=== PATIENT | male | born 1960 | race Caucasian/White ===

== ENCOUNTER 2024-07-24 20:35 | Inpatient (IN) | payer MEDICARE, MEDICAID ==
[~2024-07-24] VITALS: Ht 182.9 cm; Wt 81.0 kg
[2024-07-24] MEDS: LORAZEPAM 2MG/ML INJ IM ONE (21:35)
[2024-07-24] MEDS: SODIUM CHLORIDE 0.9% 1000ML BAG (SEPSIS BOLUS) IV ONE (21:35)
[2024-07-24] MEDS: HALOPERIDOL LACTATE 5MG/ML VIAL IM ONE (21:42)
[2024-07-24] MEDS: DIPHENHYDRAMINE 50MG/ML VIAL IM ONE (21:45)
[2024-07-24] MEDS: PIPERACILLIN/TAZO 3.375G/50ML 50 ML IV ONE (21:45)
[2024-07-24] MEDS: VANCOMYCIN 1G PREMIX 200 ML IV ONE (22:16)
[2024-07-24] MEDS: MIDAZOLAM HCL 2 MG/2 ML VIAL IV ONE ×3 (22:35→23:38)
[2024-07-24 23:35] LABS: HEMATOCRIT. 35.2 % (42.0-52.0); HEMOGLOBIN. 11.6 g/dL (14.0-18.0); MEAN CORPUSCULAR HEMOGLOBIN 29.6 pg (28.0-32.0); MEAN CORPUSCULAR HGB CONC 32.9 g/dL (31.0-37.0); MEAN CORPUSCULAR VOLUME 89.9 fL (80.0-94.0); MEAN PLATELET VOLUME 8.1 fl (7.4-10.4); PLATELET 101 x1000/uL (130-400); RED BLOOD CELL COUNT 3.91 mill/uL (4.7-6.1); RED CELL DISTRIBUTION WIDTH 15.7 % (11.6-14.6); WHITE BLOOD COUNT 21.6 x1000/uL (4.5-11.0)
[2024-07-24] MEDS: OLANZAPINE 10 MG/VIAL IM ONE (23:38)
[2024-07-24 23:40] LABS: INR 1.2; PROTHROMBIN TIME 13.5 sec (9.6-11.0)
[2024-07-24 23:42] LABS: CHLORIDE 106 mEq/L (98-107); POTASSIUM 3.6 mEq/L (3.5-5.1); SODIUM 141 mEq/L (136-145)
[2024-07-24 23:43] LABS: CALCIUM 9.4 mg/dL (8.7-10.4); CARBON DIOXIDE 22 mEq/L (21-32)
[2024-07-24 23:48] LABS: CREATININE 1.8 mg/dL (0.6-1.3); GLUCOSE 197 mg/dL (70-105); UREA NITROGEN BLOOD 25 mg/dL (9-23)
[2024-07-24 23:49] LABS: AMMONIA 17 uMol/L (<32)
[2024-07-24 23:50] LABS: ALANINE AMINOTRANSFERASE 38 IU/L (10-49); ALBUMIN 3.9 g/dL (3.2-4.8); ASPARTATE AMINOTRANSFERASE 56 IU/L (<34); BILIRUBIN DIRECT 0.3 mg/dL (<=3.0); BILIRUBIN TOTAL 0.7 mg/dL (0.1-1.0); CREATINE KINASE 885 IU/L (46-171)
[2024-07-24 23:51] LABS: PROTEIN TOTAL 6.9 g/dL (6.0-8.3)
[2024-07-24 23:54] LABS: DIFFERENTIAL COMMENT 1
[2024-07-25] VITALS (12 sets, daily range): BP systolic 109–183; BP diastolic 64–123; PULSE 82–107; RESP 21–29; TEMP 36.16956–38.66976; O2SAT 95–98
[2024-07-25 00:04] LABS: LACTIC ACID 4.4 mmol/L (0.4-2.0)
[2024-07-25 00:05] LABS: TROPONIN I HIGH SENSITIVITY 2148 ng/L (3.0-53)
[2024-07-25] MEDS: MIDAZOLAM HCL 2 MG/2 ML VIAL IV ONE ×2 (02:05→02:30)
[2024-07-25 02:54] LABS: PLATELET ESTIMATE DECREASED
[2024-07-25] MEDS ORDERED: GUAIFENESIN 200MG/10ML SUGAR FREE UDC PO PRN (06:15)
[2024-07-25] MEDS ORDERED: MAGNESIUM/ALUMINUM HYDROXIDE/SIMETHICONE 30ML UDC PO PRN (06:15)
[2024-07-25] MEDS ORDERED: DEXTROSE 50% WATER 50ML SYRINGE IV PRN (06:15)
[2024-07-25] MEDS ORDERED: IPRATROPIUM/ALBUTEROL 0.5-3(2.5)MG/3ML NEB NEB PRN (06:15)
[2024-07-25] MEDS ORDERED: NITROGLYCERIN 0.4MG TABLET SL SL PRN (06:15)
[2024-07-25] MEDS ORDERED: LACTATED RINGERS 1,000 ML IV ONE (06:15)
[2024-07-25] MEDS: MVI, ADULT NO.1 10 ML, FOLIC ACID 1 MG, THIAMINE HCL 100 MG in SODIUM CHLORIDE 0.9% 1,0... IV SCH (07:08)
[2024-07-25] MEDS: BLOOD SUGAR DIAGNOSTIC STRIP TEST SCH (07:30)
[2024-07-25] MEDS: INSULIN LISPRO 100 UNITS/ML SUBCUT SCH (08:00)
[2024-07-25] MEDS: PANTOPRAZOLE SODIUM 40 MG/VIAL IV SCH (09:23)
[2024-07-25] MEDS: ENOXAPARIN 40MG/0.4ML SYR SUBCUT SCH (09:27)
[2024-07-25] MEDS: DEXT 5%/LACTATED RINGERS 1,000 ML IV SCH (09:35)
[2024-07-25] MEDS: INSULIN GLARGINE 100 UNITS/ML SUBCUT SCH (10:00)
[2024-07-25 10:25] LABS: IRON 27 ug/dL (65-175)
[2024-07-25 10:26] LABS: CHOLESTEROL 91 mg/dL (<200)
[2024-07-25 10:27] LABS: LDL CHOLESTEROL 36 mg/dL (5-100); TRIGLYCERIDE 91 mg/dL (0-150)
[2024-07-25 10:28] LABS: HDL CHOLESTEROL 34 mg/dL (>55)
[2024-07-25 10:29] LABS: TOTAL IRON BINDING CAPACITY 231 ug/dl (250-425)
[2024-07-25] MEDS: HALOPERIDOL LACTATE 5MG/ML VIAL IM PRN (10:30)
[2024-07-25] MEDS: QUETIAPINE FUMARATE 25MG TABLET PO SCH ×2 (10:30→20:38)
[2024-07-25 11:44] LABS: FOLIC ACID (FOLATE) SERUM 15.17 ng/mL (>5.38)
[2024-07-25 11:45] LABS: VITAMIN B12 SERUM 1226 pg/mL (211-911)
[2024-07-25] MEDS: ACETAMINOPHEN 325MG TABLET PO PRN ×2 (12:24→17:23)
[2024-07-25 13:30] LABS: CLARITY URINE CLEAR (CLEAR); COLOR URINE YELLOW (YELLOW); GLUCOSE URINE NEGATIVE (NEGATIVE); KETONES URINE 1+ (NEGATIVE); LEUKOCYTE ESTERASE URINE NEGATIVE (NEGATIVE); NITRITE URINE NEGATIVE (NEGATIVE); OCCULT BLOOD URINE NEGATIVE (NEGATIVE); PH URINE 5.5 (4.5-8.0); PROTEIN URINE NEGATIVE (NEGATIVE); SPECIFIC GRAVITY URINE 1.019 (1.005-1.030)
[2024-07-25] MEDS: PIPERACILLIN/TAZO 3.375G/50ML 50 ML IV SCH (13:46)
[2024-07-25 13:54] LABS: *AMPHETAMINES SCREEN URINE NEGATIVE (NEGATIVE)
[2024-07-25 13:55] LABS: *BARBITURATES SCREEN URINE NEGATIVE (NEGATIVE); *BENZODIAZEPINES SCREEN URINE PRESUMPTIVE POSITIVE (NEGATIVE); *COCAINE SCREEN URINE NEGATIVE (NEGATIVE); CANNABINOID URINE SCREEN NEGATIVE (NEGATIVE); ECSTASY MDMA SCREEN URINE NEGATIVE (NEGATIVE); METHADONE URINE SCREEN NEGATIVE (NEGATIVE); OPIATES URINE SCREEN NEGATIVE (NEGATIVE); PHENCYCLIDINE URINE SCREEN NEGATIVE (NEGATIVE)
[2024-07-25] MEDS: ONDANSETRON HCL 4MG/2ML INJ IV PRN (14:02)
[2024-07-25] MEDS: KETOROLAC 30MG/ML VIAL IV PRN (14:02)
[2024-07-25] MEDS: ASPIRIN 81MG EC TABLET PO SCH (17:22)
[2024-07-25] MEDS: CLONIDINE 0.1MG TABLET PO PRN (18:12)
[2024-07-25] MEDS: ZOLPIDEM TARTRATE 5MG TABLET PO PRN (20:38)
[2024-07-25] MEDS: VANCOMYCIN 1GM/200ML PMX (BAXTER) IV SCH (22:17)
[2024-07-26] VITALS (30 sets, daily range): BP systolic 81–194; BP diastolic 67–124; PULSE 94–145; RESP 12–38; TEMP 37.7808–40.0032; O2SAT 94–100
[2024-07-26 05:58] LABS: CHLORIDE 107 mEq/L (98-107); POTASSIUM 3.4 mEq/L (3.5-5.1); SODIUM 140 mEq/L (136-145)
[2024-07-26 06:02] LABS: CALCIUM 8.7 mg/dL (8.7-10.4); CARBON DIOXIDE 22 mEq/L (21-32)
[2024-07-26 06:03] LABS: BASOPHILS % 0.4 % (0.0-2.0); HEMATOCRIT. 32.9 % (42.0-52.0); HEMOGLOBIN. 10.9 g/dL (14.0-18.0); LYMPHOCYTES % 11.7 % (20.0-50.0); MEAN CORPUSCULAR HEMOGLOBIN 30.3 pg (28.0-32.0); MEAN CORPUSCULAR HGB CONC 33.2 g/dL (31.0-37.0); MEAN CORPUSCULAR VOLUME 91.3 fL (80.0-94.0); MEAN PLATELET VOLUME 8.8 fl (7.4-10.4); MONOCYTES % 14.4 % (2.0-8.0); NEUTROPHILS % 73.5 % (40.0-76.0); PLATELET 61 x1000/uL (130-400); RED BLOOD CELL COUNT 3.61 mill/uL (4.7-6.1); RED CELL DISTRIBUTION WIDTH 15.5 % (11.6-14.6); WHITE BLOOD COUNT 16.1 x1000/uL (4.5-11.0)
[2024-07-26 06:07] LABS: CREATININE 1.2 mg/dL (0.6-1.3); GLUCOSE 157 mg/dL (70-105); UREA NITROGEN BLOOD 17 mg/dL (9-23)
[2024-07-26 06:08] LABS: ALANINE AMINOTRANSFERASE 160 IU/L (10-49); ALBUMIN 3.6 g/dL (3.2-4.8); ASPARTATE AMINOTRANSFERASE 358 IU/L (<34)
[2024-07-26 06:09] LABS: BILIRUBIN TOTAL 1.1 mg/dL (0.1-1.0); PHOSPHORUS 1.9 mg/dL (2.5-4.9)
[2024-07-26 06:10] LABS: PROTEIN TOTAL 6.4 g/dL (6.0-8.3)
[2024-07-26 08:09] LABS: LITHIUM SERUM < 0.1 mmol/L (0.5-1.2)
[2024-07-26] MEDS ORDERED: MAGNESIUM SULFATE IV ONE (08:30)
[2024-07-26] MEDS ORDERED: [UNRECOGNIZED DRUG - OTHER] IV ONE (08:30)
[2024-07-26] MEDS ORDERED: DEXTROSE IV ONE (08:30)
[2024-07-26] MEDS ORDERED: POTASSIUM CHLORIDE 40 MEQ in DEXT 5% WATER 230 ML IV ONE (08:30)
[2024-07-26] MEDS: KCL 20MEQ/100ML X 2 FOR TOTAL KCL 40MEQ/200ML IV SCH (09:39)
[2024-07-26] MEDS: DEXT 5% IV SCH (11:28)
[2024-07-26] MEDS: MAGNESIUM SULFATE IV SCH (11:28)
[2024-07-26] MEDS: WATER IV SCH (11:28)
[2024-07-26] MEDS: VANCOMYCIN 1GM/200ML PMX (BAXTER) IV SCH (14:07)
[2024-07-26] MEDS: METOPROLOL TARTRATE 25MG TABLET PO SCH (14:15)
[2024-07-26] MEDS: HYDRALAZINE 20MG/ML VIAL IV PRN (14:37)
[2024-07-26] MEDS: DILTIAZEM HCL 5MG/ML 5ML VIAL IV NR (15:07)
[2024-07-26] MEDS ORDERED: DILTIAZEM HCL 125 MG in DEXT 5% WATER 100 ML IV PRN (15:30)
[2024-07-26 16:17] LABS: BG BASE EXCESS -4.2 mmol/L (-2.0-3.0); BG CARBOXYHEMOGLOBIN 0.4 % (0.5-1.5); BG FRACTION INSPIRED OXYGEN 28; BG HCO3 ACT 16.1 mmol/L (21.0-28.0); BG METHEMOGLOBIN 0.3 % (0.5-1.5); BG OXYHEMOGLOBIN 93.3 % (94.0-98.0); BG PCO2 19.2 mmHg (35.0-48.0); BG PH 7.541 (7.350-7.450); BG PO2 63.2 mmHg (83.0-108.0); BG SAMPLE SITE RIGHT RADIAL; BG TOTAL HEMOGLOBIN 12.5 g/dL (13.5-17.5); BG VENT MODE NASAL CANNULA
[2024-07-26] MEDS: SODIUM CHLORIDE 10% FOR INH 15ML NEB INH SCH (18:00)
[2024-07-26] MEDS: DEXMEDETOMIDINE 400 MCG/100 ML 100 ML IV PRN (18:33)
[2024-07-26] MEDS: METHYLPREDNISOLONE SOD SUCC 40MG/ML (ACT-O-VIAL) IV SCH (19:28)
[2024-07-26] MEDS: AZITHROMYCIN 500MG/250ML 250 ML IV SCH (20:22)
[2024-07-26 20:50] LABS: BG BASE EXCESS -2.6 mmol/L (-2.0-3.0); BG CARBOXYHEMOGLOBIN 0.3 % (0.5-1.5); BG DEOXYHEMOGLOBIN 0.2 % (0.0-5.0); BG FRACTION INSPIRED OXYGEN 100; BG HCO3 ACT 21.6 mmol/L (21.0-28.0); BG METHEMOGLOBIN 0.3 % (0.5-1.5); BG OXYGEN SATURATION 99.8 % (94.0-98.0); BG OXYHEMOGLOBIN 99.2 % (94.0-98.0); BG PCO2 35.6 mmHg (35.0-48.0); BG PH 7.401 (7.350-7.450); BG PO2 324.7 mmHg (83.0-108.0); BG SAMPLE SITE RIGHT RADIAL; BG TOTAL HEMOGLOBIN 12.2 g/dL (13.5-17.5); BG VENT MODE VENT - AC
[2024-07-26 21:06] LABS: AMMONIA 41 uMol/L (<32)
[2024-07-26 21:22] LABS: CHLORIDE 105 mEq/L (98-107); POTASSIUM 3.6 mEq/L (3.5-5.1); SODIUM 136 mEq/L (136-145)
[2024-07-26 21:23] LABS: CALCIUM 8.3 mg/dL (8.7-10.4); CARBON DIOXIDE 19 mEq/L (21-32)
[2024-07-26 21:28] LABS: GLUCOSE 346 mg/dL (70-105); UREA NITROGEN BLOOD 24 mg/dL (9-23)
[2024-07-26 21:29] LABS: CREATININE 1.9 mg/dL (0.6-1.3)
[2024-07-26 21:30] LABS: ALANINE AMINOTRANSFERASE 269 IU/L (10-49); ALBUMIN 3.5 g/dL (3.2-4.8); ASPARTATE AMINOTRANSFERASE 564 IU/L (<34); PROTEIN TOTAL 6.3 g/dL (6.0-8.3)
[2024-07-26] MEDS ORDERED: INSULIN REGULAR (HUMULIN R) 1000UNITS/10ML VIAL IV NR (21:45)
[2024-07-26] MEDS ORDERED: SODIUM CHLORIDE 0.45% 1,000 ML IV SCH (22:00)
[2024-07-27] VITALS (108 sets, daily range): BP systolic 61–160; BP diastolic 42–133; PULSE 81–140; RESP 15–41; TEMP 36.22512–41.55888; O2SAT 89–100
[2024-07-27] MEDS: FENTANYL 2500MCG/250ML PMX 250 ML IV PRN (00:29)
[2024-07-27] MEDS: MIDAZOLAM 100MG/100ML PMX 100 ML IV PRN (00:30)
[2024-07-27] MEDS: SODIUM CHLORIDE 0.9% 500 ML IV NR (01:32)
[2024-07-27] MEDS: PHENYLEPHRINE 100 MG in DEXT 5% WATER 240 ML IV PRN (03:52)
[2024-07-27] MEDS: ACETAMINOPHEN 650MG SUPP PR PRN (04:04)
[2024-07-27] MEDS: LACTATED RINGERS 1,000 ML IV NR (04:32)
[2024-07-27] MEDS: NOREPINEPHRINE 32 MG in DEXT 5% WATER 218 ML IV PRN (07:08)
[2024-07-27 08:43] LABS: LACTIC ACID 6.6 mmol/L (0.4-2.0)
[2024-07-27 08:48] LABS: BG BASE EXCESS -7.8 mmol/L (-2.0-3.0); BG CARBOXYHEMOGLOBIN 0.3 % (0.5-1.5); BG DEOXYHEMOGLOBIN 1.3 % (0.0-5.0); BG FRACTION INSPIRED OXYGEN 60; BG OXYGEN SATURATION 98.7 % (94.0-98.0); BG OXYHEMOGLOBIN 98.4 % (94.0-98.0); BG PCO2 23.8 mmHg (35.0-48.0); BG PH 7.416 (7.350-7.450); BG PO2 132.6 mmHg (83.0-108.0); BG SAMPLE SITE RIGHT RADIAL; BG TOTAL HEMOGLOBIN 12.4 g/dL (13.5-17.5); BG TOTAL RESPIRATORY RATE 40 b/min; BG VENT MODE VENT - AC
[2024-07-27] MEDS ORDERED: ASPIRIN 81MG TABLET PO SCH (10:00)
[2024-07-27] MEDS: ASPIRIN 81MG TABLET GT SCH (10:27)
[2024-07-27] MEDS: LACTATED RINGERS 1,000 ML IV ONE (12:45)
[2024-07-27] MEDS ORDERED: ACETAMINOPHEN 650MG/20.3ML UDC GT PRN (14:15)
[2024-07-27] MEDS: MEROPENEM 1G/100ML 100 ML IV SCH (17:03)
[2024-07-27 17:17] LABS: BASOPHILS % 0.6 % (0.0-2.0); EOSINOPHILS % 0.1 % (0.0-5.0); HEMOGLOBIN. 11.6 g/dL (14.0-18.0); MEAN CORPUSCULAR HEMOGLOBIN 29.7 pg (28.0-32.0); MEAN CORPUSCULAR HGB CONC 32.2 g/dL (31.0-37.0); MEAN CORPUSCULAR VOLUME 92.2 fL (80.0-94.0); MEAN PLATELET VOLUME 9.9 fl (7.4-10.4); MONOCYTES % 8.5 % (2.0-8.0); NEUTROPHILS % 74.8 % (40.0-76.0); RED CELL DISTRIBUTION WIDTH 17.1 % (11.6-14.6); WHITE BLOOD COUNT 12.5 x1000/uL (4.5-11.0)
[2024-07-27 17:25] LABS: CHLORIDE 99 mEq/L (98-107); SODIUM 130 mEq/L (136-145)
[2024-07-27 17:28] LABS: CALCIUM 6.6 mg/dL (8.7-10.4); CARBON DIOXIDE 15 mEq/L (21-32)
[2024-07-27 17:34] LABS: ALANINE AMINOTRANSFERASE 604 IU/L (10-49); UREA NITROGEN BLOOD 53 mg/dL (9-23)
[2024-07-27 17:36] LABS: BILIRUBIN TOTAL 0.6 mg/dL (0.1-1.0); PROTEIN TOTAL 5.4 g/dL (6.0-8.3)
[2024-07-27 17:46] LABS: CREATININE 5.1 mg/dL (0.6-1.3); GLUCOSE 437 mg/dL (70-105); PHOSPHORUS 12.3 mg/dL (2.5-4.9)
[2024-07-27 17:52] LABS: ASPARTATE AMINOTRANSFERASE 2093 IU/L (<34)
[2024-07-27 18:03] LABS: DIFFERENTIAL COMMENT 1
[2024-07-27] MEDS: SODIUM POLYSTYRENE SULFONATE 15 G/60 ML BOT PR NR (19:57)
[2024-07-27] MEDS: DEXTROSE 50% WATER 50ML SYRINGE IV NR (20:42)
[2024-07-27] MEDS: SODIUM BICARBONATE 8.4% 50MEQ/50ML SYR IV NR (20:45)
[2024-07-27] MEDS: INSULIN REGULAR (HUMULIN R) 1000UNITS/10ML VIAL IV NR (20:46)
[2024-07-27] MEDS: DEXT 5%/0.9% NACL 1,000 ML IV SCH (20:47)
[2024-07-28] VITALS (115 sets, daily range): BP systolic 53–145; BP diastolic 33–110; PULSE 83–135; RESP 9–23; TEMP 35.22504–38.892; O2SAT 95–100
[2024-07-28 02:14] LABS: CALCIUM 6.4 mg/dL (8.7-10.4)
[2024-07-28 02:34] LABS: POTASSIUM 6.5 mEq/L (3.5-5.1)
[2024-07-28 02:35] LABS: CREATININE 5.6 mg/dL (0.6-1.3)
[2024-07-28] MEDS: SODIUM ZIRCONIUM CYCLOSILICATE 10GM/PACKET PO NR ×2 (03:26→08:44)
[2024-07-28] MEDS: BISACODYL 10MG SUPP PR NR (03:26)
[2024-07-28] MEDS: SODIUM BICARBONATE 8.4% 50MEQ/50ML SYR IV NR ×3 (03:27→12:16)
[2024-07-28] MEDS: INSULIN REGULAR (HUMULIN R) 1000UNITS/10ML VIAL IV NR (03:28)
[2024-07-28] MEDS: ALBUTEROL (0.083%) 2.5MG/3ML NEB HHN NR (05:31)
[2024-07-28 05:41] LABS: CHLORIDE 94 mEq/L (98-107); POTASSIUM 6.1 mEq/L (3.5-5.1); SODIUM 133 mEq/L (136-145)
[2024-07-28 05:44] LABS: CALCIUM 6.2 mg/dL (8.7-10.4); CARBON DIOXIDE 16 mEq/L (21-32); HEMATOCRIT. 36.5 % (42.0-52.0); HEMOGLOBIN. 11.7 g/dL (14.0-18.0); MEAN CORPUSCULAR HEMOGLOBIN 30.3 pg (28.0-32.0); MEAN CORPUSCULAR HGB CONC 32.2 g/dL (31.0-37.0); MEAN CORPUSCULAR VOLUME 94.2 fL (80.0-94.0); MEAN PLATELET VOLUME 9.9 fl (7.4-10.4); RED BLOOD CELL COUNT 3.87 mill/uL (4.7-6.1); RED CELL DISTRIBUTION WIDTH 16.4 % (11.6-14.6)
[2024-07-28 05:48] LABS: UREA NITROGEN BLOOD 54 mg/dL (9-23)
[2024-07-28 05:50] LABS: ALANINE AMINOTRANSFERASE 631 IU/L (10-49)
[2024-07-28 05:51] LABS: ALBUMIN 2.9 g/dL (3.2-4.8); BILIRUBIN DIRECT 0.8 mg/dL (<=3.0); BILIRUBIN TOTAL 1.2 mg/dL (0.1-1.0); PROTEIN TOTAL 5.4 g/dL (6.0-8.3)
[2024-07-28 06:02] LABS: ASPARTATE AMINOTRANSFERASE 2373 IU/L (<34)
[2024-07-28 06:29] LABS: DIFFERENTIAL COMMENT 1
[2024-07-28 07:04] LABS: CREATININE 5.6 mg/dL (0.6-1.3); GLUCOSE 419 mg/dL (70-105); PHOSPHORUS 16.3 mg/dL (2.5-4.9)
[2024-07-28 09:19] LABS: BG BASE EXCESS -19.1 mmol/L (-2.0-3.0); BG DEOXYHEMOGLOBIN 2.6 % (0.0-5.0); BG FRACTION INSPIRED OXYGEN 70; BG HCO3 ACT 11.6 mmol/L (21.0-28.0); BG METHEMOGLOBIN 0.3 % (0.5-1.5); BG OXYGEN SATURATION 97.4 % (94.0-98.0); BG OXYHEMOGLOBIN 97.1 % (94.0-98.0); BG PCO2 46.9 mmHg (35.0-48.0); BG SAMPLE SITE RIGHT RADIAL; BG TOTAL HEMOGLOBIN 12.5 g/dL (13.5-17.5); BG VENT MODE VENT - AC
[2024-07-28 12:00] LABS: BG BASE EXCESS -15.6 mmol/L (-2.0-3.0); BG CARBOXYHEMOGLOBIN 0.3 % (0.5-1.5); BG DEOXYHEMOGLOBIN 3.6 % (0.0-5.0); BG FRACTION INSPIRED OXYGEN 60; BG HCO3 ACT 14.7 mmol/L (21.0-28.0); BG METHEMOGLOBIN 0.3 % (0.5-1.5); BG OXYGEN SATURATION 96.4 % (94.0-98.0); BG OXYHEMOGLOBIN 95.8 % (94.0-98.0); BG PCO2 53.5 mmHg (35.0-48.0); BG PH 7.056 (7.350-7.450); BG PO2 98.4 mmHg (83.0-108.0); BG SAMPLE SITE RIGHT RADIAL; BG TOTAL HEMOGLOBIN 12.5 g/dL (13.5-17.5); BG VENT MODE VENT - AC
[2024-07-28] MEDS: DOCUSATE SODIUM 100MG CAPSULE PO PRN (12:16)
[2024-07-28] MEDS: SODIUM BICARBONATE 100 MEQ in SODIUM CHLORIDE 0.45% 900 ML IV SCH (12:40)
[2024-07-28] MEDS ORDERED: INSULIN REGULAR 100U/100ML PMX 100 ML IV SCH (13:15)
[2024-07-28] MEDS ORDERED: DEXTROSE 50% WATER 50ML SYRINGE IV PRN (13:15)
[2024-07-28] MEDS: BLOOD SUGAR DIAGNOSTIC STRIP TEST SCH (13:28)
[2024-07-28] MEDS: SODIUM POLYSTYRENE SULFONATE 15 G/60 ML BOT PO NR (13:37)
[2024-07-28] MEDS: INSULIN REGULAR 100U/100ML PMX 100 ML IV SCH (16:01)
[2024-07-28] MEDS ORDERED: [UNRECOGNIZED DRUG - OTHER] XX SCH (16:30)
[2024-07-28] MEDS: PHENYLEPHRINE 100 MG in SODIUM CHLORIDE 0.9% 240 ML IV PRN (18:25)
[2024-07-28 18:54] LABS: BG BASE EXCESS -16.2 mmol/L (-2.0-3.0); BG CARBOXYHEMOGLOBIN 0.3 % (0.5-1.5); BG FRACTION INSPIRED OXYGEN 55; BG HCO3 ACT 9.7 mmol/L (21.0-28.0); BG METHEMOGLOBIN 0.3 % (0.5-1.5); BG OXYHEMOGLOBIN 96.4 % (94.0-98.0); BG PCO2 23.9 mmHg (35.0-48.0); BG PH 7.226 (7.350-7.450); BG PO2 108.3 mmHg (83.0-108.0); BG SAMPLE SITE RIGHT RADIAL; BG TOTAL HEMOGLOBIN 12.1 g/dL (13.5-17.5); BG TOTAL RESPIRATORY RATE 18 b/min; BG VENT MODE VENT - P/C
[2024-07-28 19:57] LABS: CHLORIDE 96 mEq/L (98-107); SODIUM 136 mEq/L (136-145)
[2024-07-28 19:58] LABS: CARBON DIOXIDE 14 mEq/L (21-32)
[2024-07-28 20:03] LABS: UREA NITROGEN BLOOD 62 mg/dL (9-23)
[2024-07-28 20:05] LABS: ALANINE AMINOTRANSFERASE 684 IU/L (10-49); ALBUMIN 2.9 g/dL (3.2-4.8); BILIRUBIN TOTAL 1.5 mg/dL (0.1-1.0); PROTEIN TOTAL 5.2 g/dL (6.0-8.3)
[2024-07-28 20:08] LABS: GLUCOSE 130 mg/dL (70-105)
[2024-07-28 20:10] LABS: POTASSIUM 6.4 mEq/L (3.5-5.1)
[2024-07-28 20:11] LABS: CALCIUM 5.4 mg/dL (8.7-10.4); CREATININE 6.2 mg/dL (0.6-1.3)
[2024-07-28 20:25] LABS: ASPARTATE AMINOTRANSFERASE 2431 IU/L (<34)
[2024-07-28] MEDS: NOREPINEPHRINE 32 MG in SODIUM CHLORIDE 0.9% 218 ML IV PRN (21:45)
[2024-07-29] VITALS (105 sets, daily range): BP systolic 67–128; BP diastolic 46–89; PULSE 81–127; RESP 10–23; TEMP 33.44712–38.50308; O2SAT 96–100
[2024-07-29] MEDS: INSULIN LISPRO 100 UNITS/ML SUBCUT SCH ×2 (02:00→12:15)
[2024-07-29] MEDS: BLOOD SUGAR DIAGNOSTIC STRIP TEST SCH ×2 (02:00→12:16)
[2024-07-29 02:01] LABS: CARBON DIOXIDE 13 mEq/L (21-32); CHLORIDE 95 mEq/L (98-107); SODIUM 135 mEq/L (136-145)
[2024-07-29 02:07] LABS: GLUCOSE 80 mg/dL (70-105); UREA NITROGEN BLOOD 65 mg/dL (9-23)
[2024-07-29 02:08] LABS: POTASSIUM 7.1 mEq/L (3.5-5.1)
[2024-07-29 02:10] LABS: CREATININE 6.5 mg/dL (0.6-1.3)
[2024-07-29] MEDS: DEXTROSE 50% WATER 50ML SYRINGE IV PRN (02:10)
[2024-07-29 02:11] LABS: PHOSPHORUS 17.6 mg/dL (2.5-4.9)
[2024-07-29] MEDS ORDERED: IPRATROPIUM/ALBUTEROL 0.5-3(2.5)MG/3ML NEB HHN NR (02:21)
[2024-07-29] MEDS: INSULIN REGULAR (HUMULIN R) 1000UNITS/10ML VIAL IV NR (02:34)
[2024-07-29] MEDS: DEXTROSE 50% WATER 50ML SYRINGE IV NR (02:35)
[2024-07-29] MEDS: SODIUM POLYSTYRENE SULFONATE 15 G/60 ML BOT NG NR (02:35)
[2024-07-29 07:14] LABS: CREATINE KINASE > 39000 IU/L (46-171); LACTATE DEHYDROGENASE > 4500 IU/L (120-246)
[2024-07-29 07:15] LABS: PHOSPHORUS 17.5 mg/dL (2.5-4.9)
[2024-07-29] MEDS: MEROPENEM 500MG/50ML IV SCH (09:14)
[2024-07-29] MEDS: SODIUM BICARBONATE 150 MEQ in DEXTROSE 5% WATER 850 ML IV SCH (10:18)
[2024-07-29 13:10] LABS: ANISOCYTOSIS 1+; PLATELET ESTIMATE MARKEDLY DECREASED
[2024-07-29 13:11] LABS: PLATELET 20 x1000/uL (130-400)
[2024-07-30] VITALS (31 sets, daily range): BP systolic 34–89; BP diastolic 13–68; PULSE 0–86; RESP 0–16; TEMP 32.2248–33.39156; O2SAT 78–98
[2024-07-30] MEDS: VASOPRESSIN 20 UNIT in SODIUM CHLORIDE 0.9% 99 ML IV PRN (01:28)
[2024-07-30] MEDS ORDERED: VASOPRESSIN 20 UNIT in SODIUM CHLORIDE 0.9% 99 ML IV PRN (01:30)
[2024-07-30] MEDS: DOPAMINE 800MG PREMIX (DOUBLE) 250 ML IV PRN (01:53)
[2024-07-30] MEDS: EPINEPHRINE 10 MG in SODIUM CHLORIDE 0.9% 240 ML IV PRN (02:36)
[2024-07-30 05:43] LABS: BASOPHILS % 0.8 % (0.0-2.0); EOSINOPHILS % 0.4 % (0.0-5.0); HEMATOCRIT. 22.7 % (42.0-52.0); MEAN CORPUSCULAR HEMOGLOBIN 30.9 pg (28.0-32.0); MEAN CORPUSCULAR VOLUME 106.5 fL (80.0-94.0); MEAN PLATELET VOLUME 9.1 fl (7.4-10.4); MONOCYTES % 8.5 % (2.0-8.0); NEUTROPHILS % 62.3 % (40.0-76.0); RED BLOOD CELL COUNT 2.14 mill/uL (4.7-6.1)
[2024-07-30 05:54] LABS: CHLORIDE 91 mEq/L (98-107); SODIUM 134 mEq/L (136-145)
[2024-07-30 06:00] LABS: UREA NITROGEN BLOOD 64 mg/dL (9-23)
[2024-07-30 06:05] LABS: GLUCOSE 298 mg/dL (70-105)
[2024-07-30 06:07] LABS: CARBON DIOXIDE < 10 mEq/L (21-32); POTASSIUM 9.1 mEq/L (3.5-5.1)
[2024-07-30 06:08] LABS: CALCIUM 4.9 mg/dL (8.7-10.4); CREATININE 7.4 mg/dL (0.6-1.3)
[2024-07-30 06:33] LABS: DIFFERENTIAL COMMENT 1
[2024-07-30 06:42] LABS: HEMOGLOBIN. 6.6 g/dL (14.0-18.0); PLATELET 11 x1000/uL (130-400)
[2024-08-02 11:57] LABS: PLATELET 31 x1000/uL (130-400)
== END 2024-07-30 13:11 | DRG 871 ==
LOC: ER 20:35 → 5EST 07-25 02:09 → EDBEDREQSVC 07-25 02:16 → EDBEDREQTM 07-25 02:16 → 5EST 07-25 03:52 → MICUNO 07-26 17:00
PROVIDERS: ADMIT Internal Medicine; ATTEND Internal Medicine
PROC: 5A1945Z Respiratory Ventilation, 24-96 Consecutive Hours (ICD-10-PCS; principal; 2024-07-26)
PROC: 0BH17EZ Insertion of Endotracheal Airway into Trachea, Via Natural or Artificial Opening (ICD-10-PCS; 2024-07-26)
PROC: 0BH17EZ Insertion of Endotracheal Airway into Trachea, Via Natural or Artificial Opening (ICD-10-PCS; 2024-07-27)
PROC: 02HV33Z Insertion of Infusion Device into Superior Vena Cava, Percutaneous Approach (ICD-10-PCS; 2024-07-27)
PROC: B548ZZA Ultrasonography of Superior Vena Cava, Guidance (ICD-10-PCS; 2024-07-27)
DX: A41.9 Sepsis, unspecified organism (principal); G92.8 Other toxic encephalopathy; N17.0 Acute kidney failure with tubular necrosis; R65.21 Severe sepsis with septic shock; I21.A1 Myocardial infarction type 2; J96.91 Respiratory failure, unspecified with hypoxia; J15.69 Pneumonia due to other Gram-negative bacteria; K72.00 Acute and subacute hepatic failure without coma; J96.01 Acute respiratory failure with hypoxia; M62.82 Rhabdomyolysis; E87.1 Hypo-osmolality and hyponatremia; E87.4 Mixed disorder of acid-base balance; Z99.11 Dependence on respirator [ventilator] status; F20.9 Schizophrenia, unspecified; F31.9 Bipolar disorder, unspecified; Z20.822 Contact with and (suspected) exposure to COVID-19; I16.0 Hypertensive urgency; Z66 Do not resuscitate; D69.6 Thrombocytopenia, unspecified; E11.9 Type 2 diabetes mellitus without complications; E78.5 Hyperlipidemia, unspecified; E83.39 Other disorders of phosphorus metabolism; E87.5 Hyperkalemia; F41.9 Anxiety disorder, unspecified; E83.42 Hypomagnesemia; E87.6 Hypokalemia; D64.9 Anemia, unspecified; I10 Essential (primary) hypertension; Z78.1 Physical restraint status; Z79.4 Long term (current) use of insulin; Z82.49 Family history of ischemic heart disease and other diseases of the circulatory system; Z83.3 Family history of diabetes mellitus
CPT/HCPCS: 31500; 36415; 36600; 71045; 74018; 76700; 76770; 80048; 80053; 80061; 80076; 80178; 80202; 80305; 81003; 82140; 82375; 82550; 82607; 82746; 82805; 82962; 83036; 83540; 83550; 83605; 83615; 83735; 83880; 84100; 84132; 84145; 84443; 84484; 84550; 85025; 85651; 86038; 87070; 87077; 87186; 87426; 93005; 93306; 93970; 93971; 94003; 99291; 99292; A6261; J0360; J0456; J1200; J1265; J1630; J1650; J1815; J1885; J2060; J2185; J2250; J2405; J2470; J2543; J2920; J3010; J3370; J3411; J3475; J3480; J3490; J7030; J7042; J7050; J7060; J7070; J7121; J7131; Q9957